=== PATIENT | female | born 1955 | race Caucasian/White ===

== ENCOUNTER → 2017-04-18 | Outpatient (CLI) | payer OTHER ==
[~2017-04-18] MED LIST: ALL300 PO; ALLO100T70 PO; ASPI-1471 PO; ATOR20TA22 PO; CEP500 PO; EST625 PO; HYDR-2970 PO; IBUP-1687 PO; LISI-362 PO; LOR5/325 PO; MET500 PO; POTA20TA85 PO
--- NOTE | 2017-04-18 10:39 | EKG ---
FACILITY: [facility] [place] PATIENT NAME: MANDI QUAN : [id number] MR: [id number] V: [id number] EXAM DATE: ORDERING PHYSICIAN: ISABEL RAND TECHNOLOGIST: Test Reason : Blood Pressure : / mmHG Vent. Rate : 100 BPM Atrial Rate : 100 BPM P-R Int : 158 ms QRS Dur : 086 ms QT Int : 364 ms P-R-T Axes : 079 073 088 degrees QTc Int : 469 ms Normal sinus rhythm Normal ECG No previous ECGs available Confirmed by ISABEL GOLDMAN ([id number]) on 04/20/2017 8:55:26 AM Referred By: Confirmed By:ISABEL GOLDMAN
== END ==
LOC: LAB 10:06
PROVIDERS: ATTEND Anesthesiology
DX: Z01.812 Encounter for preprocedural laboratory examination (principal); Z01.810 Encounter for preprocedural cardiovascular examination; E11.9 Type 2 diabetes mellitus without complications
CPT/HCPCS: 36415; 82040; 82247; 82310; 82374; 82435; 82565; 82947; 83036; 84075; 84132; 84155; 84295; 84450; 84460; 84520; 93005

== ENCOUNTER 2017-04-23 01:10 | Observation (INO) | payer OTHER ==
[2017-04-23] VITALS (12 sets, daily range): BP systolic 100–152; BP diastolic 62–90
[~2017-04-23] VITALS: Ht 172.7 cm; Wt 85.3 kg
[2017-04-23] MEDS ORDERED: CELECOXIB 200 MG CAP PO ONE (12:00)
[2017-04-23] MEDS ORDERED: LIDOCAINE/SOD BICARB 8.4% SYR ID ONE (12:00)
[2017-04-23] MEDS ORDERED: ceFAZolin(*) 2GM/D5W 50ML 50 ML IVPB ONE (12:00)
[2017-04-23] MEDS ORDERED: FAMOTIDINE 20 MG TAB PO ONE (12:00)
[2017-04-23] MEDS ORDERED: NORMOSOL R SOLN(*) 1000 ML BAG 1,000 ML IV PRN (12:00)
[2017-04-23] MEDS ORDERED: LIDOCAINE MPF 1% 5 ML VIAL ONE (12:01)
[2017-04-23] MEDS ORDERED: METOCLOPRAMIDE 10 MG/2 ML SDV ONE (12:01)
[2017-04-23] MEDS ORDERED: DEXAMETHASONE SOD 4 MG/ML VIAL ONE (12:01)
[2017-04-23] MEDS ORDERED: SUGAMMADEX SOD 200 MG/2 ML SDV ONE (12:01)
[2017-04-23] MEDS ORDERED: ONDANSETRON 4 MG/2 ML VIAL ONE (12:01)
[2017-04-23] MEDS ORDERED: PROPOFOL EMUL(*) 10MG/ML 20 ML 20 ML ONE (12:01)
[2017-04-23 12:31] LABS: PLATELET COUNT, AUTOMATED 261 K/uL (150-450)
[2017-04-23] MEDS ORDERED: ROPIVACAINE 0.5% 20 ML VIAL ONE (12:33)
[2017-04-23] MEDS ORDERED: fentaNYL CITR 100 MCG/2 ML AMP ONE (12:35)
[2017-04-23] MEDS ORDERED: ROCURONIUM BROM 10 MG/ML 5 ML ONE (13:15)
[2017-04-23] MEDS ORDERED: ROPIVACAINE 0.2% 20 ML VIAL ONE (13:53)
[2017-04-23] MEDS ORDERED: MORPHINE 10 MG/ML SYR ONE (14:00)
[2017-04-23] MEDS ORDERED: cloNIDine EPIDUR INJ 100MCG/ML 40 MCG, ROPIVACAINE 0.5% 20 ML VIAL 25 ML, EPINEPHrine H... INJ ONE (14:50)
--- NOTE | 2017-04-23 16:57 | RADIOLOGY IMAGING REPORT ---
[place] [facility] [place]IENT NAME: Emily Isaac : 1955 MR: [id number] V: [id number] EXAM DATE: ORDERING PHYSICIAN: DAX BISHOP TECHNOLOGIST: Location: [facility] [place] Patient: Emily Isaac : 1955 Visit/Account:[id number] Date of Sevice: 04/23/2017 Exam type: C-ARM FLUORO >1 HR History: PROXIMAL HUMERUS FRACTURE/ ORIF Comparison: None. Findings: Three intraoperative C-arm spot views of the right shoulder demonstrate open reduction internal fixat ion of a comminuted fracture to the proximal right humerus. The cumulative continuous fluoroscopy do se was 0.49633 mGray per meter squared. The total fluoroscopy time was 33.3 seconds. IMPRESSION: 1. As above Report Dictated By: Angelina Mullen MD at 04/23/2017 4:52 PM Report E-Signed By: Angelina Mullen MD at 04/23/2017 4:53 PM WSN:[email or web address]
[2017-04-23] MEDS ORDERED: ONDANSETRON 4 MG/2 ML VIAL IVP PRN (17:35)
[2017-04-23] MEDS ORDERED: MAGNESIUM CITRATE 300 ML BTL PO PRN (17:35)
[2017-04-23] MEDS ORDERED: NALOXONE HCL 0.4 MG/ML VIAL IVP PRN (17:35)
[2017-04-23] MEDS ORDERED: ACETAMINOPHEN 500 MG TAB PO PRN (17:35)
[2017-04-23] MEDS ORDERED: diphenhydrAMINE 25 MG CAP PO PRN (17:35)
[2017-04-23] MEDS ORDERED: MORPHINE SULFATE 30 MG PCA IV PRN (17:35)
[2017-04-23] MEDS ORDERED: FLUSH 10 ML SYR IVP PRN (17:35)
[2017-04-23] MEDS ORDERED: KCL/D5LR 20 MEQ/1000 ML PREMIX 1,000 ML IV PRN (17:35)
[2017-04-23] MEDS ORDERED: PROMETHAZINE 25 MG/ML 1 ML AMP IVP PRN (17:35)
--- NOTE | 2017-04-23 18:45 | Hospitalist Progress Note ---
Subjective Progress Notes Subjective Patient seen post-op. Reviewed PMHx (HTN, type 2 DM, renal stones) and medications. At present she reports doing well. No CP/SOB/N/V. Physical Exam Vital Signs Date Time Temp Pulse Resp B/P (MAP) Pulse Ox O2 Delivery O2 Flow Rate FiO2 04/23/17 18:15 84 132/77 (95) 91 04/23/17 18:13 Nasal Cannula 1.0 04/23/17 18:07 97.9 16 Intake and Output 04/24/17 07:01 Intake Total 2250 ml Balance 2250 ml Intake IV Total 2250 ml General Appearance: Alert, Awake Cardiovascular: Regular Rate and Rhythm Respiratory: Clear to Auscultation Result Diagram: 04/23/17 1720 Assessment and Plan Problems: (1) Type 2 diabetes mellitus Status: Chronic Assessment & Plan: Will place on ADA diet, resume metformin, check fingerstick glucoses, and use SSI as needed. (2) HTN (hypertension) Status: Chronic Assessment & Plan: Monitor BPs and resume her lisinopril as needed. (3) Hyperlipidemia Status: Chronic Assessment & Plan: Continue Lipitor. (4) Renal stones Status: Chronic Assessment & Plan: She has been managed with HCTZ, allopurinol, and Klor-Con. No changes. Check electrolytes. Exam Sepsis Risk: No Definite Risk STACI OSULLIVAN MD Apr 23, 2017 18:45
[2017-04-23] MEDS ORDERED: INSULIN HUM LISPRO 100 UN/ML 3 ML VIAL SUBQ PRN (18:50)
[2017-04-23] MEDS ORDERED: ATORVASTATIN 10 MG TAB PO SCH (21:00)
[2017-04-23] MEDS: ceFAZolin 1 GM VIAL IVP SCH (21:15)
--- NOTE | 2017-04-23 22:19 | OPERATIVE REPORT 1 ---
EVENT DATE: April 23, 2017 SURGEON: Iftikhar Singh MD ANESTHESIOLOGIST: Dewayne Ramirez MD ANESTHESIA: General. PIER MASTER ASSISTANT: BREANNA Almeida PREOPERATIVE DIAGNOSES Right proximal humerus comminuted fracture with displacement and resultant rotator cuff tear. POSTOPERATIVE DIAGNOSES Right proximal humerus comminuted fracture with displacement and resultant rotator cuff tear. PROCEDURE PERFORMED Open reduction and internal fixation of the right humerus at the joint, to include advancement and repair of half of the infraspinatus and all of the teres minor. ESTIMATED BLOOD LOSS 150 INTRAVENOUS FLUIDS 2000 TOURNIQUET TIME None. SPECIMENS None. COMPLICATIONS None. IMPLANTS Synthes 3.5 mm proximal humerus (two-hole). SUMMARY OF PROCEDURE The patient was brought into the operating room and placed on the OR table in the supine position. Dr. Ramirez had discussed the use of a block with Ms. Isaac. She did receive a general anesthetic. The right upper extremity was prepped and draped in the usual sterile fashion. We free draped the arm and shifted her over to the lateral side sufficiently to allow for use of the C-arm on the ipsilateral approach. After waiting the appropriate time to let the prep dry, the rest of the draping was accomplished, and then we undertook a deltopectoral approach. The cephalic vein was left with the deltoid. We did release a small portion of the upper part of the pectoralis and then freed up the tissues overlying the humerus by blunt spreading. The axillary nerve was palpated. I initially attempted a reduction by accessing the fracture through the fragments that exited up through the greater tuberosity, but it did not appear that that was going to be working. The humeral head was attached to portions of the greater tuberosity on its superior margin where the blood supply was almost certainly still coming in. The humeral circumflex vessels were still intact, and I took care to protect them during the approach. However, in this particular case, to gain access to the head and push it back up, it looked like we would need to gain access to the joint itself. Consequently, I made an incision through the lateral margin of the subscapularis, leaving a small cuff of soft tissue, but exposing enough of the anterior aspect of the humeral shaft that we could later fix the fragments pulled off the backside. Once I had exposed the head, I was able to put a small Darrach retractor beneath the head, reduce it, and push it back up into position to match up with the superior part. When doing so, the greater tuberosity moved along with it, confirming my suspicion that the two were attached. However, when getting the C-arm views in this position, the reduction was not anatomic. The head was still tipped down a little bit and inferiorly displaced. Furthermore, there was the fragment that we had seen on plain x-rays that was significantly displaced and pulled well anterior that appeared to be a posterior fragment. For this reason, we then internally rotated her and began to work posteriorly. Ultimately after removing scar tissue, fibrous material, and debriding some additional soft tissue that was in the way, I was able to identify the axillary nerve, progressing around the backside of the humerus, and also the retracted fragment which included a portion of the humeral head and some of the shaft as well. This fragment was mobilized with a blunt instrument both above and below its fascia, and then it was advanced with transosseous sutures that were placed by first drilling through the bone with a K-wire and then passing suture. We placed a couple of mattress sutures through it right at the enthesis and then pulled it forward. We cleaned off the defect in the head on the backside and positioned it in place with transosseous sutures holding laterally as well. While holding it in position with suture and with my hand, I placed a K-wire to advance from anterior to posterior which additionally stabilized the bone. We then put the Darrach retractor back under the head and pushed up on it while pulling down on the arm and placed two additional K-wires from lateral to medial to help hold the head and then applied the two-hole proximal humeral plate. I intentionally positioned the plate a bit more inferior than normal because I did not want the locking screws to cut the sutures we had placed previously that were holding the rotator cuff in position and the posterior fragment, but also because I wanted to leave room to place anterior interfragmentary screws along the axis of the previously placed K-wire. We planned to place screws up into the humeral head grabbing the articular surface , but before doing so, I assessed the position of the plate, and it looked like it still was displaced a little bit medially along with the head. Based on this , rather than bending the plate significantly, I made a decision to mount the plate on the humeral shaft and then reduce the head and proximal aspect to it. We placed a nonlocking screw first to compress the plate against the bone and then placed a distal locking screw. At this point, I then had my assistant professor surgical technology pull down on the humeral shaft while rotating it to the neutral position and then firmly pushing up on the articular surface and attached tuberosity to push them back towards the plate. This position was held while I placed two locking screws through the proximal aspect of the plate. They got good fixation. She had good bone, and when releasing pressure on the inferior aspect of the humeral head, it did not move, so we got a C-arm view, and it was anatomic. The remainder of the proximal screws were filled, after which we also moved down and placed the two kickstand screws, although because I had inferiorly displaced the plate a bit, the inferior-most kickstand did not really go up into its usual location, but we still got good purchase on the shaft with that screw, and there were plenty of screws in the head to hold it. Having done this , we then removed the two K-wires placed previously and left the anterior K- wire in position to guide us for our screw. I once again retracted around the posterior aspect of the fragment displaced off the backside of the humerus, held it in position (it was already held by suture), and then placed an interfragmentary 3.5 mm screw from anterior to posterior to get additional fixation. We then obtained x-rays of all elements of the plate and screws, and it did not appear that any were too long. The wound was irrigated. We placed a local anesthetic throughout the deep structures. I then repaired the subscapularis anatomically, irrigated one more time, and then closure was undertaken with 3-0 Vicryl and 4-0 Monocryl with Steri-Strips applied. She was awakened and transferred to the post-anesthesia care unit in stable condition. FLORENTINO
[2017-04-24 03:27] VITALS: BP 118/67
[2017-04-24] MEDS: ceFAZolin 1 GM VIAL IVP SCH (05:26)
[2017-04-24 06:03] LABS: PLATELET COUNT, AUTOMATED 223 K/uL (150-450)
--- NOTE | 2017-04-24 06:37 | Hospitalist Progress Note ---
Subjective Progress Notes Subjective She reports doing well. No complaints. Physical Exam Vital Signs Date Time Temp Pulse Resp B/P (MAP) Pulse Ox O2 Delivery O2 Flow Rate FiO2 04/24/17 03:27 98.1 81 118/67 (84) 97 Nasal Cannula 1.0 04/23/17 18:07 16 General Appearance: Alert, Awake Cardiovascular: Regular Rate and Rhythm Respiratory: Clear to Auscultation Result Diagram: 04/24/17 0545 04/24/17 0545 Item Value Date Time Whole Blood Glucose 266 mg/DL H 04/23/17 2315 Whole Blood Glucose 169 mg/DL H 04/23/17 1720 Whole Blood Glucose 128 mg/DL H 04/23/17 1135 Assessment and Plan Problems: (1) Type 2 diabetes mellitus Status: Chronic Assessment & Plan: She will continue on ADA diet, metformin. (2) HTN (hypertension) Status: Chronic Assessment & Plan: Continue her lisinopril. (3) Hyperlipidemia Status: Chronic Assessment & Plan: Continue Lipitor. (4) Renal stones Status: Chronic Assessment & Plan: She will continue with her usual HCTZ, allopurinol, and Klor -Con. Exam Sepsis Risk: No Definite Risk STACI OSULLIVAN MD Apr 24, 2017 06:37
[2017-04-24 07:28] VITALS: BP 119/73
[2017-04-24] MEDS ORDERED: metFORMIN HCL 500 MG TAB PO SCH (08:00)
[2017-04-24 08:40] VITALS: Ht 172.7 cm; Wt 85.3 kg
[2017-04-24] MEDS ORDERED: POTASSIUM CHL 20 MEQ TABCR PO SCH (09:00)
[2017-04-24] MEDS ORDERED: ALLOPURINOL 300 MG TAB PO SCH (09:00)
[2017-04-24] MEDS ORDERED: HYDROCHLOROTHIAZIDE 25 MG TAB PO SCH (09:00)
[2017-04-24] MEDS ORDERED: ASPIRIN 81 MG ENTERIC COATED PO SCH (09:00)
[2017-04-24 11:46] VITALS: BP 115/70
[2017-04-24] MEDS ORDERED: LISINOPRIL 10 MG TAB PO SCH (17:00)
== END 2017-04-24 07:23 | disposition home or self-care (01) ==
LOC: OR 01:10 → MED 18:05
PROVIDERS: ADMIT Orthopaedic Surgery Hand Surgery; ATTEND Orthopaedic Surgery Hand Surgery
DX: S42.201A Unspecified fracture of upper end of right humerus, initial encounter for closed fracture (principal); M75.101 Unspecified rotator cuff tear or rupture of right shoulder, not specified as traumatic; E11.9 Type 2 diabetes mellitus without complications; I10 Essential (primary) hypertension
CPT/HCPCS: 23420; 23616; 36415; 36416; 76001; 82948; 85014; 85018; 85025; 97165; 97535; A4565; C1713; G0378; J0171; J0690; J0735; J1100; J1885; J2001; J2270; J2405; J2704; J2765; J2795; J3480; J7050; 82310; 82374; 82435; 82565; 82947; 84132; 84295; 84520; J3010